=== PATIENT | male | born 1940 | race Caucasian/White ===

== ENCOUNTER 2016-06-18 15:35 | Outpatient (CLI) | payer MEDICARE, OTHER | END 2016-06-18 15:36 | disposition home or self-care (01) | DX: E11.9 Type 2 diabetes mellitus without complications (principal); R35.8 Other polyuria ==

== ENCOUNTER 2016-12-25 10:07 | Outpatient (CLI) | payer MEDICARE, OTHER ==
[2016-12-25 18:40] LABS: HEMOGLOBIN A1C 0.62 g/dL
[2016-12-25 19:44] LABS: CALCIUM 9.3 mg/dL (8.5-10.3); CREATININE 1.4 mg/dL (0.6-1.2); POTASSIUM 4.3 mmol/L (3.5-5.0)
== END 2016-12-25 10:08 | disposition home or self-care (01) ==
LOC: LAB.F 10:07
PROVIDERS: ATTEND Internal Medicine
DX: E11.9 Type 2 diabetes mellitus without complications (principal)
CPT/HCPCS: 36415; 80048; 83036

== ENCOUNTER 2017-01-13 15:27 | Outpatient (CLI) | payer MEDICARE, OTHER ==
[2017-01-13 18:05] LABS: BILIRUBIN,URINE NEGATIVE (NEGATIVE)
[2017-01-13 18:30] LABS: WBC,URINE 0-3 /HPF (0-3)
[2017-01-13 18:56] LABS: CREATININE 1.2 mg/dL (0.6-1.2); POTASSIUM 4.4 mmol/L (3.5-5.0)
== END 2017-01-13 15:28 | disposition home or self-care (01) ==
LOC: LAB.F 15:27
PROVIDERS: ATTEND Internal Medicine
DX: N17.9 Acute kidney failure, unspecified (principal); N40.1 Benign prostatic hyperplasia with lower urinary tract symptoms
CPT/HCPCS: 36415; 80048; 81001

== ENCOUNTER 2017-12-02 16:58 | Outpatient (CLI) | payer MEDICARE, OTHER | END 2017-12-02 16:59 | disposition home or self-care (01) | LOC: LAB.R 16:58 | PROVIDERS: ATTEND Nurse Practitioner Family | DX: L72.9 Follicular cyst of the skin and subcutaneous tissue, unspecified (principal) | CPT/HCPCS: 87070; 87205 ==

== ENCOUNTER 2018-07-16 07:37 | Outpatient (CLI) | payer MEDICARE, OTHER ==
[2018-07-16 12:40] LABS: ALBUMIN/GLOBULIN RATIO 1.3 (1.0-2.2); ALKALINE PHOSPHATASE 56 IU/L (42-121); ALT ALANINE AMINOTRANSFERASE 18 IU/L (10-60); AST ASPARTATE AMINOTRANSFERASE 19 IU/L (10-42); BUN - BLOOD UREA NITROGEN 24 mg/dL (6-20); CARBON DIOXIDE - CO2 28 mmol/L (21-32); CHLORIDE 101 mmol/L (101-111); CHOLESTEROL 179 mg/dL; CREATININE 1.3 mg/dL (0.6-1.2); GFR - MDRD 53 (>89); GLUCOSE 149 mg/dL (70-100); HDL CHOLESTEROL 45 mg/dL; LDL CHOLESTEROL,CALCULATED 104 mg/dL; LDL/HDL RATIO 2.3 (<3.6); SODIUM 137 mmol/L (135-145); TOTAL PROTEIN 7.1 g/dL (6.7-8.2); VLDL CHOLESTEROL 30 mg/dL
[2018-07-16 12:48] LABS: HB2 TOTAL 15.8 g/dL; HEMOGLOBIN A1C 0.69 g/dL; HEMOGLOBIN A1C % 6.1 % (4.6-6.2)
== END 2018-07-16 07:38 | disposition home or self-care (01) ==
LOC: LAB.F 07:37
PROVIDERS: ATTEND Internal Medicine
DX: E11.9 Type 2 diabetes mellitus without complications (principal); E78.5 Hyperlipidemia, unspecified
CPT/HCPCS: 36415; 80053; 80061; 83036; 83721

== ENCOUNTER 2018-12-18 08:00 | Outpatient (CLI) | payer MEDICARE, OTHER | END 2018-12-18 23:59 | disposition home or self-care (01) | LOC: LAB.R 08:00 | PROVIDERS: ATTEND Family Medicine | DX: L72.3 Sebaceous cyst (principal) | CPT/HCPCS: 87070; 87075; 87076; 87205 ==

== ENCOUNTER 2020-02-28 08:00 | Outpatient (CLI) | payer MEDICARE, OTHER | END 2020-02-28 23:59 | disposition home or self-care (01) | LOC: LAB.R 08:00 | PROVIDERS: ATTEND Internal Medicine | DX: Z12.11 Encounter for screening for malignant neoplasm of colon (principal) | CPT/HCPCS: 82274 ==

== ENCOUNTER 2020-04-04 13:32 | Outpatient (CLI) | payer MEDICARE, OTHER ==
[2020-04-04 19:45] LABS: BASOPHILS # (AUTO) 0.1 10^3/uL (0.0-0.1); BASOPHILS % (AUTO) 0.7 %; EOSINOPHILS # (AUTO) 0.3 10^3/uL (0.0-0.7); EOSINOPHILS % (AUTO) 3.3 %; HGB - HEMOGLOBIN 15.1 g/dL (14.0-18.0); LYMPHOCYTES # (AUTO) 2.7 10^3/uL (1.5-3.5); LYMPHOCYTES % (AUTO) 32.8 %; MEAN CORPUSCULAR HEMOGLOBIN 32.3 pg (27.0-31.0); MEAN CORPUSCULAR HGB CONC 32.6 g/dL (32.0-36.0); MEAN CORPUSCULAR VOLUME 99.1 fL (80.0-94.0); MEAN PLATELET VOLUME 12.6 fL (7.4-11.4); MONOCYTES # (AUTO) 0.8 10^3/uL (0.0-1.0); MONOCYTES % (AUTO) 9.6 %; NEUTROPHILS # (AUTO) 4.3 10^3/uL (1.5-6.6); NEUTROPHILS % (AUTO) 53.2 %; PLT - PLATELET COUNT 184 10^3/uL (130-450); RED BLOOD COUNT 4.67 10^6/uL (4.70-6.10); WHITE BLOOD COUNT 8.1 x10^3/uL (4.8-10.8)
[2020-04-04 20:07] LABS: ALBUMIN 4.1 g/dL (3.2-5.5); ALBUMIN/GLOBULIN RATIO 1.5 (1.0-2.2); BILIRUBIN,TOTAL 0.7 mg/dL (0.2-1.0); CALCIUM 9.8 mg/dL (8.5-10.3); CREATININE 1.5 mg/dL (0.6-1.2); TOTAL PROTEIN 6.9 g/dL (6.7-8.2)
== END 2020-04-04 13:33 | disposition home or self-care (01) ==
LOC: LAB.S 13:32
PROVIDERS: ATTEND Internal Medicine
DX: I10 Essential (primary) hypertension (principal)
CPT/HCPCS: 36415; 80053; 85025

== ENCOUNTER 2020-06-30 07:04 | Outpatient (CLI) | payer MEDICARE, OTHER ==
[2020-06-30 15:18] LABS: BASOPHILS # (AUTO) 0.1 10^3/uL (0.0-0.1); BASOPHILS % (AUTO) 0.9 %; EOSINOPHILS # (AUTO) 0.3 10^3/uL (0.0-0.7); EOSINOPHILS % (AUTO) 3.5 %; HCT - HEMATOCRIT 43.8 % (42.0-52.0); HGB - HEMOGLOBIN 14.4 g/dL (14.0-18.0); LYMPHOCYTES # (AUTO) 2.5 10^3/uL (1.5-3.5); LYMPHOCYTES % (AUTO) 32.9 %; MEAN CORPUSCULAR HEMOGLOBIN 31.6 pg (27.0-31.0); MEAN CORPUSCULAR HGB CONC 32.9 g/dL (32.0-36.0); MEAN CORPUSCULAR VOLUME 96.3 fL (80.0-94.0); MEAN PLATELET VOLUME 11.8 fL (7.4-11.4); MONOCYTES # (AUTO) 0.7 10^3/uL (0.0-1.0); NEUTROPHILS % (AUTO) 53.2 %; PLT - PLATELET COUNT 233 10^3/uL (130-450); RED BLOOD COUNT 4.55 10^6/uL (4.70-6.10); RED CELL DISTRIBUTION WIDTH 12.8 % (12.0-15.0); WHITE BLOOD COUNT 7.5 x10^3/uL (4.8-10.8)
[2020-06-30 15:51] LABS: ALBUMIN 4.1 g/dL (3.2-5.5); ALBUMIN/GLOBULIN RATIO 1.4 (1.0-2.2); BILIRUBIN,TOTAL 0.9 mg/dL (0.2-1.0); CALCIUM 9.5 mg/dL (8.5-10.3); CREATININE 1.6 mg/dL (0.6-1.2); POTASSIUM 4.3 mmol/L (3.5-5.0); TOTAL PROTEIN 7.1 g/dL (6.7-8.2)
[2020-06-30 19:55] LABS: ESTIMATED AVERAGE GLUCOSE 169 mg/dL (70-100); HEMOGLOBIN A1c% 7.5 % (4.27-6.07)
== END 2020-06-30 07:05 | disposition home or self-care (01) ==
LOC: LAB.S 07:04
PROVIDERS: ATTEND Internal Medicine
DX: I10 Essential (primary) hypertension (principal); E11.9 Type 2 diabetes mellitus without complications; N40.1 Benign prostatic hyperplasia with lower urinary tract symptoms; N13.8 Other obstructive and reflux uropathy
CPT/HCPCS: 36415; 80053; 83036; 84153; 85025

== ENCOUNTER 2020-08-18 08:00 | Outpatient (CLI) | payer MEDICARE, OTHER | END 2020-08-18 23:59 | disposition home or self-care (01) | LOC: LAB.S 08:00 | PROVIDERS: ATTEND Physician Assistant | DX: R05 Cough (principal); Z20.822 Contact with and (suspected) exposure to COVID-19 ==

== ENCOUNTER 2020-08-18 10:17 | Outpatient (CLI) | payer MEDICARE, OTHER ==
--- NOTE | 2020-08-18 10:40 | XRAY Report ---
PROCEDURE: Chest 2 View X-Ray INDICATIONS: COUGH TECHNIQUE: 2 view(s) of the chest. COMPARISON: None. FINDINGS: Surgical changes and devices: None. Lungs and pleura: No pleural effusions or pneumothorax. Lungs are clear. Mediastinum: Mediastinal contours are normal. Heart size is normal. Bones and chest wall: No suspicious bony abnormalities. Soft tissues appear unremarkable. IMPRESSION: No acute process. Reviewed by: Gemini Cohen MD on 08/18/2020 10:39 AM PDT Approved by: Gemini Cohen MD on 08/18/2020 10:39 AM PDT Station ID: [id number]
== END 2020-08-18 23:59 | disposition home or self-care (01) ==
LOC: DI.S 10:17
PROVIDERS: ATTEND Physician Assistant
DX: R05 Cough (principal); Z20.822 Contact with and (suspected) exposure to COVID-19
CPT/HCPCS: 71046; U0004

== ENCOUNTER 2020-09-27 07:16 | Outpatient (CLI) | payer MEDICARE, OTHER ==
[2020-09-27 16:26] LABS: ALBUMIN 4.1 g/dL (3.2-5.5); ALBUMIN/GLOBULIN RATIO 1.4 (1.0-2.2); BILIRUBIN,TOTAL 0.9 mg/dL (0.2-1.0); CALCIUM 9.2 mg/dL (8.5-10.3); CREATININE 1.3 mg/dL (0.6-1.2); POTASSIUM 4.7 mmol/L (3.5-5.0)
[2020-09-27 19:55] LABS: ESTIMATED AVERAGE GLUCOSE 160 mg/dL (70-100); HEMOGLOBIN A1c% 7.2 % (4.27-6.07)
== END 2020-09-27 07:17 | disposition home or self-care (01) ==
LOC: LAB.S 07:16
PROVIDERS: ATTEND Internal Medicine
DX: E11.22 Type 2 diabetes mellitus with diabetic chronic kidney disease (principal); N18.9 Chronic kidney disease, unspecified; R97.20 Elevated prostate specific antigen [PSA]
CPT/HCPCS: 36415; 80053; 83036; 84153

== ENCOUNTER 2020-12-05 08:00 | Outpatient (CLI) | payer MEDICARE, OTHER | END 2020-12-05 15:43 | disposition home or self-care (01) | LOC: LAB.S 08:00 | PROVIDERS: ATTEND Internal Medicine | DX: R06.01 Orthopnea (principal); I50.1 Left ventricular failure, unspecified; Z20.822 Contact with and (suspected) exposure to COVID-19 | CPT/HCPCS: 36415; 80053; 83880 ==

== ENCOUNTER 2020-12-05 15:22 | Outpatient (CLI) | payer MEDICARE, OTHER ==
--- NOTE | 2020-12-05 15:48 | XRAY Report ---
PROCEDURE: Chest 2 View X-Ray INDICATIONS: Orthopnea TECHNIQUE: 2 view(s) of the chest. COMPARISON: None. FINDINGS: Surgical changes and devices: None. Lungs and pleura: No pleural effusions or pneumothorax. Lungs are clear. Mediastinum: Mediastinal contours are normal. Heart size is at the upper limits of normal. Bones and chest wall: No suspicious bony abnormalities. Soft tissues appear unremarkable. IMPRESSION: Heart size at the upper limits of normal with increased interstitial markings in both dieter gs with cephalization of pulmonary vessels. Findings are consistent with mild degenerative pulmonary edema. Correlate with BNP. Reviewed by: Jef Og MD on 12/05/2020 3:47 PM PDT Approved by: Jef Og MD on 12/05/2020 3:47 PM PDT Station ID: [id number]
== END 2020-12-05 23:59 | disposition home or self-care (01) ==
LOC: DI.S 15:22
PROVIDERS: ATTEND Physician Assistant Medical
DX: R06.01 Orthopnea (principal)

== ENCOUNTER 2020-12-06 09:26 | Outpatient (CLI) | payer MEDICARE, OTHER ==
[2020-12-06 14:36] LABS: BASOPHILS # (AUTO) 0.1 10^3/uL (0.0-0.1); BASOPHILS % (AUTO) 0.8 %; EOSINOPHILS # (AUTO) 0.8 10^3/uL (0.0-0.7); EOSINOPHILS % (AUTO) 9.2 %; HCT - HEMATOCRIT 39.5 % (42.0-52.0); HGB - HEMOGLOBIN 13.4 g/dL (14.0-18.0); LYMPHOCYTES # (AUTO) 1.9 10^3/uL (1.5-3.5); LYMPHOCYTES % (AUTO) 22.9 %; MEAN CORPUSCULAR HEMOGLOBIN 32.4 pg (27.0-31.0); MEAN CORPUSCULAR HGB CONC 33.9 g/dL (32.0-36.0); MEAN CORPUSCULAR VOLUME 95.6 fL (80.0-94.0); MEAN PLATELET VOLUME 11.9 fL (7.4-11.4); MONOCYTES % (AUTO) 11.4 %; NEUTROPHILS # (AUTO) 4.6 10^3/uL (1.5-6.6); NEUTROPHILS % (AUTO) 55.3 %; PLT - PLATELET COUNT 188 10^3/uL (130-450); RED BLOOD COUNT 4.13 10^6/uL (4.70-6.10); WHITE BLOOD COUNT 8.4 x10^3/uL (4.8-10.8)
[2020-12-06 14:52] LABS: ALBUMIN 3.8 g/dL (3.2-5.5); ALBUMIN/GLOBULIN RATIO 1.3 (1.0-2.2); BILIRUBIN,TOTAL 0.9 mg/dL (0.2-1.0); CALCIUM 8.9 mg/dL (8.5-10.3); CREATININE 1.5 mg/dL (0.6-1.2); POTASSIUM 4.5 mmol/L (3.5-5.0); TOTAL PROTEIN 6.8 g/dL (6.7-8.2)
== END 2020-12-06 09:27 | disposition home or self-care (01) ==
LOC: LAB.S 09:26
PROVIDERS: ATTEND Internal Medicine
DX: E11.9 Type 2 diabetes mellitus without complications (principal); R06.01 Orthopnea
CPT/HCPCS: 36415; 80053; 83880; 85025

== ENCOUNTER 2020-12-11 09:16 | Outpatient (CLI) | payer MEDICARE, OTHER ==
[2020-12-11 15:44] LABS: ALBUMIN 4.4 g/dL (3.2-5.5); ALBUMIN/GLOBULIN RATIO 1.5 (1.0-2.2); BILIRUBIN,TOTAL 1.4 mg/dL (0.2-1.0); CALCIUM 9.5 mg/dL (8.5-10.3); CREATININE 1.8 mg/dL (0.6-1.2); POTASSIUM 4.8 mmol/L (3.5-5.0); TOTAL PROTEIN 7.4 g/dL (6.7-8.2)
== END 2020-12-11 09:17 | disposition home or self-care (01) ==
LOC: LAB.S 09:16
PROVIDERS: ATTEND Internal Medicine
DX: N18.9 Chronic kidney disease, unspecified (principal); I50.1 Left ventricular failure, unspecified
CPT/HCPCS: 36415; 80053; 83880

== ENCOUNTER → 2020-12-27 | Outpatient (CLI) | payer MEDICARE, OTHER ==
[2020-12-27 20:02] LABS: ALBUMIN/GLOBULIN RATIO 1.3 (1.0-2.2); BILIRUBIN,TOTAL 0.8 mg/dL (0.2-1.0); CALCIUM 9.4 mg/dL (8.5-10.3); CREATININE 1.5 mg/dL (0.6-1.2); POTASSIUM 4.5 mmol/L (3.5-5.0)
== END ==
LOC: LAB.S 08:00
PROVIDERS: ATTEND Internal Medicine
DX: I50.1 Left ventricular failure, unspecified (principal)
CPT/HCPCS: 36415; 80053; 83880

== ENCOUNTER 2021-01-25 08:52 | Outpatient (CLI) | payer MEDICARE, OTHER | END 2021-01-25 08:53 | disposition home or self-care (01) | LOC: DI 08:52 | PROVIDERS: ATTEND Internal Medicine | DX: I50.1 Left ventricular failure, unspecified (principal); I51.7 Cardiomegaly | CPT/HCPCS: 93306 ==

== ENCOUNTER 2021-02-01 13:25 | Outpatient (CLI) | payer MEDICARE, OTHER ==
[2021-02-01] MEDS ORDERED: ALBUTEROL 1 PUFF INH STA (14:56)
== END 2021-02-01 13:26 | disposition home or self-care (01) ==
LOC: RT 13:25
PROVIDERS: ATTEND Internal Medicine
DX: J45.909 Unspecified asthma, uncomplicated (principal); I50.1 Left ventricular failure, unspecified
CPT/HCPCS: 94060; 94729

== ENCOUNTER 2021-04-02 12:40 | Outpatient (CLI) | payer MEDICARE, OTHER ==
[2021-04-02 16:24] LABS: ALBUMIN 3.9 g/dL (3.2-5.5); ALBUMIN/GLOBULIN RATIO 1.3 (1.0-2.2); BILIRUBIN,TOTAL 0.7 mg/dL (0.2-1.0); CALCIUM 9.6 mg/dL (8.5-10.3); CREATININE 1.3 mg/dL (0.6-1.2); POTASSIUM 4.1 mmol/L (3.5-5.0); TOTAL PROTEIN 6.8 g/dL (6.7-8.2)
[2021-04-02 20:20] LABS: ESTIMATED AVERAGE GLUCOSE 146 mg/dL (70-100); HEMOGLOBIN A1c% 6.7 % (4.27-6.07)
== END 2021-04-02 12:41 | disposition home or self-care (01) ==
LOC: LAB.S 12:40
PROVIDERS: ATTEND Internal Medicine
DX: E11.9 Type 2 diabetes mellitus without complications (principal)
CPT/HCPCS: 36415; 80053; 83036

== ENCOUNTER 2021-05-25 08:00 | Outpatient (CLI) | payer MEDICARE, OTHER ==
--- NOTE | 2021-05-26 08:50 | XRAY Report ---
PROCEDURE: Chest 2 View X-Ray INDICATIONS: COPD, COUGH TECHNIQUE: 2 view(s) of the chest. COMPARISON: None. FINDINGS: Surgical changes and devices: None. Lungs and pleura: No pleural effusions or pneumothorax. Lungs are clear. Mediastinum: Mediastinal contours are normal. Heart size is normal. Bones and chest wall: No suspicious bony abnormalities. Soft tissues appear unremarkable. IMPRESSION: Unremarkable two-view chest x-ray Reviewed by: Slick Roger MD on 05/26/2021 7:49 AM [facility] Approved by: Slick Roger MD on 05/26/2021 7:49 AM [facility] Station ID: [id number]
== END 2021-05-25 23:59 | disposition home or self-care (01) ==
LOC: DI.S 08:00
PROVIDERS: ATTEND Physician Assistant Medical
DX: J44.9 Chronic obstructive pulmonary disease, unspecified (principal); J45.909 Unspecified asthma, uncomplicated; R06.02 Shortness of breath; R05.9 Cough, unspecified

== ENCOUNTER 2022-01-30 18:10 | Emergency (ER) | payer MEDICARE, OTHER ==
--- OUTSIDE RECORDS SUMMARY | 2022-01-30 18:23 | EXTERNAL MEDICAL SUMMARY RPT | Continuity of Care Document ---
:1940 Author Organization [facility] Address [address] [place] [address] Phone Allergies No information. Encounters No information. Functional Status No information. Immunizations No information. Medications date description facility +0000 atorvastatin [facility] +0000 atorvastatin [facility] +0000 cholecalciferol (vitamin d3) [facility] +0000 cholecalciferol (vitamin d3) [facility] Problems No information. Procedures date description facility +0000 Visit Code Hold [facility] [place] Results/Labs No information. Social History date description facility +0000 Former smoker [facility] [place] Vital Signs date measurement value units +0000 BMI BMI 36.58 kg/m2 [id number]+0000 BP_diastolic BP_diastolic 67 mm[H g] [id number]+0000 BP_systolic BP_systolic 154 mm[Hg] 46798245370957+0000 heart_rate heart_rate 77 /min [id number]+0000 height_metric height_metric 177.8 cm [id number]+0000 height_standard height_standard 70 in +0000 respiration_rate respiration_rate 18 /min [id number]+0000 temperature_metric temperature_metric 36.06 C [id number]+0000 temperature_standard temperature_standard 9 6.9 F [id number]+0000 weight_metric weight_metric 115.21 kg [id number]+0000 weight_standard weight_standard 254 lb
== END 2022-01-30 18:22 | disposition left against medical advice (07) ==
LOC: ED 18:10
DX: Z53.21 Procedure and treatment not carried out due to patient leaving prior to being seen by health care provider (principal)

== ENCOUNTER 2022-01-30 18:23 | Outpatient (CLI) | payer MEDICARE, OTHER ==
--- NOTE | 2022-01-30 20:24 | Ultrasound Report ---
PROCEDURE: Duplex Ext Veins Right INDICATIONS: EDEMA TECHNIQUE: Real-time imaging, as well as color and pulse Doppler interrogation, were performed of the lower extr emity deep veins from the inguinal ligament to the popliteal fossa. COMPARISON: None. FINDINGS: The deep veins are normally compressible, and free of intraluminal thrombus. Color and pu lse Doppler demonstrate normal phasic intraluminal flow. There is normal augmentation response to di stal compression maneuver. Elongated fluid collection in popliteal fossae seen measures 4.7 x 0.4 x 2.1 cm in size. IMPRESSION: No evidence of DVT in visualized right lower extremity veins. Right lower leg edema. Sma ll popliteal cyst as above. Reviewed by: Seng Fabian MD on 01/30/2022 8:23 PM PDT Approved by: Seng Fabian MD on 01/30/2022 8:23 PM PDT Station ID: [id number]
== END 2022-01-30 18:24 | disposition home or self-care (01) ==
LOC: DI 18:23
PROVIDERS: ATTEND Internal Medicine
DX: R60.0 Localized edema (principal); M71.21 Synovial cyst of popliteal space [Baker], right knee

== ENCOUNTER 2022-03-18 07:10 | Outpatient (CLI) | payer MEDICARE, OTHER ==
[2022-03-18 14:57] LABS: BASOPHILS # (AUTO) 0.1 10^3/uL (0.0-0.1); BASOPHILS % (AUTO) 1.3 %; EOSINOPHILS # (AUTO) 0.7 10^3/uL (0.0-0.7); EOSINOPHILS % (AUTO) 8.4 %; HCT - HEMATOCRIT 36.3 % (42.0-52.0); HGB - HEMOGLOBIN 11.5 g/dL (14.0-18.0); LYMPHOCYTES # (AUTO) 3.4 10^3/uL (1.5-3.5); LYMPHOCYTES % (AUTO) 39.6 %; MEAN CORPUSCULAR HEMOGLOBIN 31.5 pg (27.0-31.0); MEAN CORPUSCULAR HGB CONC 31.7 g/dL (32.0-36.0); MEAN CORPUSCULAR VOLUME 99.5 fL (80.0-94.0); MEAN PLATELET VOLUME 11.7 fL (7.4-11.4); MONOCYTES # (AUTO) 0.9 10^3/uL (0.0-1.0); MONOCYTES % (AUTO) 10.6 %; NEUTROPHILS # (AUTO) 3.5 10^3/uL (1.5-6.6); PLT - PLATELET COUNT 232 10^3/uL (130-450); RED BLOOD COUNT 3.65 10^6/uL (4.70-6.10); RED CELL DISTRIBUTION WIDTH 12.9 % (12.0-15.0); WHITE BLOOD COUNT 8.6 x10^3/uL (4.8-10.8)
[2022-03-18 15:45] LABS: ALBUMIN 3.8 g/dL (3.2-5.5); ALBUMIN/GLOBULIN RATIO 1.2 (1.0-2.2); ALKALINE PHOSPHATASE 71 IU/L (42-121); ALT ALANINE AMINOTRANSFERASE 17 IU/L (10-60); AST ASPARTATE AMINOTRANSFERASE 21 IU/L (10-42); BILIRUBIN,TOTAL 0.9 mg/dL (0.2-1.0); BUN - BLOOD UREA NITROGEN 25 mg/dL (6-20); CALCIUM 9.3 mg/dL (8.5-10.3); CARBON DIOXIDE - CO2 29 mmol/L (21-32); CHLORIDE 100 mmol/L (101-111); CHOLESTEROL 148 mg/dL; CREATININE 1.4 mg/dL (0.6-1.2); GFR - MDRD 48 (>89); GLUCOSE 147 mg/dL (70-100); HDL CHOLESTEROL 37 mg/dL; LDL CHOLESTEROL,CALCULATED 87 mg/dL; LDL/HDL RATIO 2.4 (<3.6); POTASSIUM 3.9 mmol/L (3.5-5.0); SODIUM 139 mmol/L (135-145); TOTAL PROTEIN 6.9 g/dL (6.7-8.2); TRIGLYCERIDES 119 mg/dL; VLDL CHOLESTEROL 24 mg/dL
[2022-03-18 18:38] LABS: ESTIMATED AVERAGE GLUCOSE 146 mg/dL (70-100); HEMOGLOBIN A1c% 6.7 % (4.27-6.07)
== END 2022-03-18 07:11 | disposition home or self-care (01) ==
LOC: LAB.S 07:10
PROVIDERS: ATTEND Registered Nurse
DX: E78.5 Hyperlipidemia, unspecified (principal); E11.9 Type 2 diabetes mellitus without complications; Z79.899 Other long term (current) drug therapy
CPT/HCPCS: 36415; 80053; 80061; 82043; 82570; 83036; 83721; 85025

== ENCOUNTER 2022-03-18 11:30 | Outpatient (CLI) | payer MEDICARE, OTHER ==
[2022-03-19 21:17] LABS: CREATININE,URINE 74.1 mg/dL; MICROALBUM/CREATININE RATIO,UR 10.8 ug/mg (<30.0); MICROALBUMIN,URINE 0.8 mg/dL (0-300.0)
== END 2022-03-18 23:59 | disposition home or self-care (01) ==
LOC: LAB 11:30
PROVIDERS: ATTEND Registered Nurse
DX: E11.9 Type 2 diabetes mellitus without complications (principal)
CPT/HCPCS: 36415; 80053; 80061; 82043; 82570; 83036; 83721; 85025

== ENCOUNTER 2022-11-05 13:36 | Outpatient (CLI) | payer MEDICARE, OTHER ==
[2022-11-05 20:03] LABS: BASOPHILS # (AUTO) 0.1 10^3/uL (0.0-0.1); BASOPHILS % (AUTO) 0.9 %; EOSINOPHILS # (AUTO) 0.2 10^3/uL (0.0-0.7); EOSINOPHILS % (AUTO) 2.2 %; HCT - HEMATOCRIT 42.4 % (42.0-52.0); LYMPHOCYTES # (AUTO) 3.9 10^3/uL (1.5-3.5); LYMPHOCYTES % (AUTO) 42.9 %; MEAN CORPUSCULAR HEMOGLOBIN 31.7 pg (27.0-31.0); MEAN CORPUSCULAR VOLUME 95.9 fL (80.0-94.0); MEAN PLATELET VOLUME 12.6 fL (7.4-11.4); MONOCYTES # (AUTO) 1.3 10^3/uL (0.0-1.0); MONOCYTES % (AUTO) 14.1 %; NEUTROPHILS # (AUTO) 3.6 10^3/uL (1.5-6.6); NEUTROPHILS % (AUTO) 39.7 %; PLT - PLATELET COUNT 218 10^3/uL (130-450); RED BLOOD COUNT 4.42 10^6/uL (4.70-6.10); RED CELL DISTRIBUTION WIDTH 12.2 % (12.0-15.0); WHITE BLOOD COUNT 9.1 x10^3/uL (4.8-10.8)
[2022-11-05 20:19] LABS: CALCIUM 9.5 mg/dL (8.5-10.3); CREATININE 1.7 mg/dL (0.6-1.3); POTASSIUM 3.6 mmol/L (3.5-4.5)
== END 2022-11-05 13:37 | disposition home or self-care (01) ==
LOC: LAB.S 13:36
PROVIDERS: ATTEND Emergency Medicine
DX: N18.9 Chronic kidney disease, unspecified (principal); R60.0 Localized edema
CPT/HCPCS: 36415; 80048; 83735; 83880; 85025

== ENCOUNTER 2022-11-07 08:00 | Outpatient (CLI) | payer MEDICARE, OTHER | END 2022-11-07 23:59 | disposition home or self-care (01) | LOC: LAB.S 08:00 | PROVIDERS: ATTEND Emergency Medicine | DX: R41.0 Disorientation, unspecified (principal) | CPT/HCPCS: 82962 ==

== ENCOUNTER 2022-11-07 08:23 | Outpatient (CLI) | payer MEDICARE, OTHER | END 2022-11-07 23:59 | disposition critical access hospital (66) | LOC: EMS 08:23 | DX: R41.0 Disorientation, unspecified (principal); R47.81 Slurred speech; R41.89 Other symptoms and signs involving cognitive functions and awareness | CPT/HCPCS: A0425; A0429 ==

== ENCOUNTER 2022-11-07 08:59 | Observation (INO) | payer MEDICARE, OTHER ==
[2022-11-07] MEDS ORDERED: MAGNESIUM SULFATE 2 GRAM 2 GM/50 ML BAG IV ONE ×2 (09:04→11:32)
--- NOTE | 2022-11-07 09:05 | ED Physician Documentation ---
PD HPI FOCAL NEURO - Stated complaint Stated Complaint: CODE STROKE - History obtained from History obtained from: Patient, EMS - History of Present Illness Timing - onset: How many hours ago (in the past 1-2 hours), Today Timing - duration: Hours (1-2) Timing - details: Abrupt onset, Still present Severity of deficit: Mild Weakness: No: Face, Arm, Leg Numbness: No: Face, Arm, Leg Associated symptoms: No: Headache, Head injury, Chest pain Contributing factors: negative: Atrial fibrillation Similar symptoms before: Has not had sx before Recently seen: Clinic (Seen and clinic couple of days ago with basic labs drawn. Result yesterday showed a magnesium 1.0.) Review of Systems Constitutional: denies: Fever, Chills Nose: denies: Rhinorrhea / runny nose, Congestion Throat: denies: Sore throat Cardiac: denies: Chest pain / pressure Respiratory: denies: Cough GI: denies: Abdominal Pain, Nausea, Vomiting, Diarrhea Neurologic: denies: Headache, Head injury PD PAST MEDICAL HISTORY - Present Medications Home Medications: Ambulatory Orders Medication Instructions Recorded Confirmed Atorvastatin [Lipitor] 10 mg PO QPM 11/07/22 11/07/22 Cholecalciferol [Vitamin D3] 25 mcg PO DAILY 11/07/22 11/07/22 Furosemide [Lasix] 20 mg PO DAILY 11/07/22 11/07/22 Magnesium Oxide [Magnesium] 400 mg PO DAILY 11/07/22 11/07/22 Montelukast [Singulair] 10 mg PO QPM 11/07/22 11/07/22 Multivitamin [Theragran] 1 tab PO DAILY 11/07/22 11/07/22 Tamsulosin [Flomax] 0.4 mg PO QPM 11/07/22 11/07/22 Tiotropium [place] [Spiriva 1 puffs INH DAILY PRN 11/07/22 11/07/22 Respimat] amLODIPine [Norvasc] 5 mg PO DAILY 11/07/22 11/07/22 metFORMIN [Glucophage] 850 mg PO BID 11/07/22 11/07/22 oxyBUTYnin chloride [Oxybutynin 5 mg PO BID 11/07/22 11/07/22 Chloride] - Allergies Allergies/Adverse Reactions: Allergies Allergy/AdvReac Type Severity Reaction Status Date / Time pork derived (porcine) Allergy Unknown Verified 11/07/22 16:21 shellfish derived Allergy Unknown Verified 11/07/22 16:20 PD ED PE NORMAL - Vitals Vital signs reviewed: Yes - General General: Alert and oriented X 3, No acute distress, Well developed/nourished, Other (speech is somewhat sluggish for complete sentences with some word search and occasional incomplete sentence thought. ) - HEENT HEENT: Atraumatic, PERRL, EOMI - Neck Neck: Supple, no meningeal sign, No adenopathy, No bruit - Cardiac Cardiac: RRR, No murmur - Respiratory Respiratory: Clear bilaterally - Abdomen Abdomen: Soft, Non tender - Derm Derm: Normal color, Warm and dry - Extremities Extremities: Normal ROM s pain, No edema - Neuro Neuro: Alert and oriented X 3, on air personality 2-12 intact, No motor deficit, No sensory deficit. No: Normal speech NIHSS - Level of Consciousness Level of consciousness: (0) Alert, Keenly responsive LOC Questions: (0) Answers both Q's correct LOC Commands: (0) Performs both correctly - Gaze Best Gaze: (0) Normal - Visual Visual: (0) No loss - Facial Palsy Facial Palsy: (0) Normal, symmetrical movement - Motor Arms (both separate) Motor Arm (right): (0) No drift Motor Arm (left): (0) No drift - Motor Legs (both separate) Motor Leg (right): (0) No drift Motor Leg (left): (0) No drift - Limb Ataxia Limb Ataxia: (0) Absent - Sensory Sensory: (0) Normal - Best Language Best Language: (1) [id number] - Dysarthria Dysarthria: (0) Normal - Extinction and Inattention (formally neg Extinction and inattention: (0) No abnormality - Total Score/Results Total Score/Result: 1 Results - Vitals Vitals: Vital Signs - 24 hr 11/07/22 11/07/22 11/07/22 08:56 10:25 11:02 Temperature 36.3 C L Heart Rate 85 80 89 Respiratory 20 21 22 Rate Blood Pressure 142/69 H 138/75 H 140/65 H O2 Saturation 99 93 99 11/07/22 11:58 Temperature Heart Rate 81 Respiratory 14 Rate Blood Pressure 143/74 H O2 Saturation 100 Oxygen O2 Source Room air - Labs Labs: Laboratory Tests 11/07/22 11/07/22 11/07/22 09:26 09:26 09:26 WBC 6.9 RBC 4.04 L Hgb 13.1 L Hct 38.0 L MCV 94.1 H MCH 32.4 H MCHC 34.5 RDW 11.9 L Plt Count 182 MPV 11.5 H Neut # (Auto) 2.9 Lymph # (Auto) 2.6 Ogle # (Auto) 1.1 H Eos # (Auto) 0.2 Baso # (Auto) 0.1 Absolute Nucleated RBC 0.00 Nucleated RBC % 0.0 ESR 21 H Sodium 136 Potassium 3.8 Chloride 96 L Carbon Dioxide 31 Anion Gap 9.0 BUN 20 Creatinine 1.9 H Estimated GFR (MDRD) 34 L Glucose 187 H Calcium 9.1 Magnesium 0.9 L* Total Bilirubin 1.0 AST 25 ALT 21 Alkaline Phosphatase 61 Total Protein 6.1 L Albumin 3.8 Globulin 2.3 Albumin/Globulin Ratio 1.7 Lipase 20 TSH 11/07/22 09:26 WBC RBC Hgb Hct MCV MCH MCHC RDW Plt Count MPV Neut # (Auto) Lymph # (Auto) Ogle # (Auto) Eos # (Auto) Baso # (Auto) Absolute Nucleated RBC Nucleated RBC % ESR Sodium Potassium Chloride Carbon Dioxide Anion Gap BUN Creatinine Estimated GFR (MDRD) Glucose Calcium Magnesium Total Bilirubin AST ALT Alkaline Phosphatase Total Protein Albumin Globulin Albumin/Globulin Ratio Lipase TSH 3.39 - Rads (name of study) head CT Relevant Findings:: Prelim report reviewed, Discussed with rads (no acute process seen), See rad report head/neck angio Relevant Findings:: Discussed with rads (no flow limitations. 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 ) PD Medical Decision Making - ED course Complexity details: reviewed results, re-evaluated patient (the patient is speaking well and seems to have good content and thought process. He has low Mag, which could give neurologic symptoms. Giving IV Mag. However, concern for possible TIA. Talked with hospitalist re: OBS for Mag replacement and TIA eval.), d/w natural remedy consultant (discussed with stroke neurology who examined patietn via video. No symptoms now or minimal level of some confusion. Not indicated for lytics and CT showing patent flow in head/neck vessels. ) Departure - Departure Disposition: ED Place in Observation Clinical Impression: Expressive aphasia, Hypomagnesemia Condition: Stable Record reviewed to determine appropriate education?: Yes Discharge Date/Time: 11/07/22 13:14
[2022-11-07] MEDS ORDERED: iohexoL-300 100 ML VIAL ONE (09:29)
[2022-11-07 09:32] LABS: BASOPHILS # (AUTO) 0.1 10^3/uL (0.0-0.1); BASOPHILS % (AUTO) 1.2 %; EOSINOPHILS # (AUTO) 0.2 10^3/uL (0.0-0.7); EOSINOPHILS % (AUTO) 2.8 %; HGB - HEMOGLOBIN 13.1 g/dL (14.0-18.0); LYMPHOCYTES # (AUTO) 2.6 10^3/uL (1.5-3.5); MEAN CORPUSCULAR HEMOGLOBIN 32.4 pg (27.0-31.0); MEAN CORPUSCULAR HGB CONC 34.5 g/dL (32.0-36.0); MEAN CORPUSCULAR VOLUME 94.1 fL (80.0-94.0); MEAN PLATELET VOLUME 11.5 fL (7.4-11.4); MONOCYTES # (AUTO) 1.1 10^3/uL (0.0-1.0); MONOCYTES % (AUTO) 15.5 %; NEUTROPHILS # (AUTO) 2.9 10^3/uL (1.5-6.6); NEUTROPHILS % (AUTO) 42.4 %; PLT - PLATELET COUNT 182 10^3/uL (130-450); RED BLOOD COUNT 4.04 10^6/uL (4.70-6.10); RED CELL DISTRIBUTION WIDTH 11.9 % (12.0-15.0); WHITE BLOOD COUNT 6.9 x10^3/uL (4.8-10.8)
--- NOTE | 2022-11-07 09:33 | CT Report ---
PROCEDURE: Head W/O Stroke Protocol INDICATIONS: trouble speaking this AM TECHNIQUE: Noncontrast 4.5 mm thick angled axial sections acquired from the foramen magnum to the vertex, with c oronal reformats. For radiation dose reduction, the following was used: automated exposure control, adjustment of mA and/or kV according to patient size. COMPARISON: None. FINDINGS: Image quality: Excellent. CSF spaces: Basal cisterns are patent. No extra-axial fluid collections. Ventricles are normal in size and shape. Brain: No midline shift. No intracranial masses or hemorrhage. Age-related volume loss and extensi ve white matter chronic small vessel ischemic changes are seen. Ibanez-white matter interface is normal . Skull and face: Calvarium and visualized facial bones are intact, without suspicious lesions. Sinuses: Visualized sinuses and mastoids are clear. IMPRESSION: No acute intracranial pathology. No contraindication to IV TPA therapy. Findings were discussed with ordering provider on 11/07/2022 at 9:27 AM. This study fulfills neurological imaging criteria for inclusion or exclusion of acute stroke therapie s based on available published neurological imaging guidelines. Reviewed by: Seng Beck MD on 11/07/2022 9:31 AM PDT Approved by: Seng Beck MD on 11/07/2022 9:31 AM PDT Station ID: [id number]
[2022-11-07 09:49] LABS: ALBUMIN 3.8 g/dL (3.2-5.5); ALBUMIN/GLOBULIN RATIO 1.7 (1.0-2.2); CALCIUM 9.1 mg/dL (8.5-10.3); CREATININE 1.9 mg/dL (0.6-1.3); POTASSIUM 3.8 mmol/L (3.5-4.5); TOTAL PROTEIN 6.1 g/dL (6.4-8.9)
[2022-11-07 10:04] LABS: MAGNESIUM 0.9 mg/dL (1.7-2.3)
[2022-11-07] MEDS ORDERED: LACTATED RINGERS 1,000 ML IV STA (10:08)
[2022-11-07] MEDS ORDERED: iohexoL-300 100 ML VIAL IVP ONE (12:07)
[2022-11-07] MEDS ORDERED: SODIUM CHLORIDE FLUSH 0.9% 10 ML SYRINGE IVP PRN (12:10)
[2022-11-07] MEDS ORDERED: HYDROcod/ACETAM 5/325 MG TABLET PO PRN (12:10)
[2022-11-07] MEDS ORDERED: ONDANSETRON ODT 4 MG TABLET TL PRN (12:10)
[2022-11-07] MEDS ORDERED: ACETAMINOPHEN 325 MG TABLET PO PRN (12:10)
--- NOTE | 2022-11-07 12:27 | HISTORY & PHYSICAL EXAMINATION ---
Chief Complaint - Chief Complaint Chief Complaint: Confusion, difficulty speaking Stroke/TIA/Neuro Template - Admitted From Admitted from: ED - History Obtained From Records Reviewed: RN notes reviewed History obtained from: Patient, Family () - History of Present Illness Problem Location Description: Confusion, speeck Severity at the worst: reports: Moderate Symptom Quality: reports: Expressive aphasia. denies: Numbness, Tingling, Headache, Facial droop, Paralysis, Slurred speech, Receptive aphasia, Ataxia, Apraxia, Syncope Context- Symptoms started w/: reports: Awake Timing: reports: Abrupt onset Date of onset: 11/07/22 Time of onset: 06:00 Duration: reports: Hours: Improved with: reports: Rest Worsened by: reports: Nothing HPI Comment/Other: Patient is an 81-year-old man with PMH of type 2 diabetes, hypertension, obesity, who presented to the ED today after he noticed confusion and difficulty speaking since this morning. Patient states he was in his usual state of health up until when he woke up this morning. He woke up and went down to his computer to check his emails and do some other work, when he noticed he started to feel confused and had a difficult time managing his computer. This was then noticed by his . He is on went to have a coffee with some friends who noticed he does not seem right so they advised to go to the emergency room for further evaluation. The patient and his are both quite poor historians and unable to provide much detail, but it does not appear that he has had any motor symptoms, headache, blurry vision, numbness, asymmetric smile, facial asymmetry or other focal neurological deficits. In an attempt to specify whether the patient had any dysarthria, I am unable to get a certain answer from either the patient or his . With respect to blurry vision, he reports his vision seems to be worse over the last few weeks, but nothing acutely that developed since this morning. Patient states he went to a walk-in clinic earlier this week, and had some blood work done. He was told that his magnesium level was low. He initially did not recall why he was going to the walk-in clinic in the first place, but eventually remembered and says it is because he had not been feeling well. When asked about specific symptoms, it is very difficult to extract any meaningful history from either the patient or his as they do not seem to have much recall and/or comprehension. In the ED, the patient was worked up as a code neuro for the possibility of CVA. His work-up was largely reassuring with normal vital signs, and low magnesium at 0.9 but otherwise fairly unremarkable labs with the exception of a creatinine of 1.9 which appears somewhat higher than his baseline. He had an unremarkable head CT and, per ED physician, unremarkable head CT angiogram of the head and the neck (report not available at the time of admission). Neurology telemedicine consultation was obtained and it was not felt that this was likely to be a CVA and may be a result of low magnesium levels as his magnesium was 0.9 in the ED. However, observation admission was suggested. Magnesium replacement was initiated in the ED. PMH/PSH - Past Medical History Cardiovascular: positive: Hypertension Endocrine/Autoimmune: positive: Type 2 diabetes - Past Surgical History Derm: positive: Skin cancer surgery Social & Family Hx - Living Situation Living Situation: With spouse/s.o. - Social History Does the pt smoke?: No Smoking Status: Former smoker Does the pt drink ETOH?: Yes ETOH Use: Wine (5-7 naren per week, no alchol in the past few weeks on admission) - POLST Patient has POLST: No POLST Status: Full Code - Family History Family History: Other family: Diabetes, Type 2 Meds/Allgy - Home Medications Home Medications: Ambulatory Orders Medication Instructions Recorded Confirmed Tiotropium [place] [Spiriva 11/07/22 Respimat] amLODIPine [Norvasc] 5 mg PO DAILY 11/07/22 11/07/22 metFORMIN [Glucophage] 11/07/22 - Allergies Allergies/Adverse Reactions: Allergies Allergy/AdvReac Type Severity Reaction Status Date / Time No Known Drug Allergies Allergy Verified 11/07/22 09:25 Review of Systems - Constitutional Constitutional: denies: Fatigue, Fever, Chills, Malaise - Eyes Eyes: denies: Blurred vision, Spots in vision, Field loss, Vision loss, Dipolpia - Cardiovascular Cariovascular: denies: Irregular heart rate, Palpitations, Chest pain - Respiratory Respiratory: denies: Cough, SOB at rest, SOB with exertion - Gastrointestinal Gastrointestinal: denies: Abdominal pain, Diarrhea, Change in bowel habits - Musculoskeletal Musculoskeletal: denies: Muscle weakness - Neurological Neurological: reports: Memory problems, Slurred speech. denies: General weakness, Focal weakness, Headache, Numbness, Incoordination Prior Level of Functionality: Fully independent and ambulatory Exam - Vital Signs Reviewed Vital Signs: Yes Vital Signs: Vital Signs x48h Temp Pulse Resp BP Pulse Ox 11/07/22 11:58 81 14 143/74 H 100 11/07/22 11:02 89 22 140/65 H 99 11/07/22 10:25 80 21 138/75 H 93 11/07/22 08:56 36.3 C L 85 20 142/69 H 99 - Physical Exam General Appearance: positive: No acute distress, Other (Obese) Eyes Bilateral: positive: Normal inspection, EOMI ENT: positive: ENT inspection nml Neck: positive: Nml inspection Respiratory: positive: Chest non-tender, No respiratory distress Cardiovascular: positive: Regular rate & rhythm, No murmur, No gallop Abdomen: positive: Non-tender, No organomegaly, Nml bowel sounds Skin: positive: Color nml Extremities: positive: Full ROM, Nml appearance, Pedal edema Neurologic/Psychiatric: positive: Oriented x3, CN's nml (2-12), Motor nml, Sensation nml, Mood/affect nml, Other (Patient is alert and oriented however seems to have some memory recall problems and is a poor historian) Results - Lab Results Lab results reviewed: Yes Fish Bones: 11/07/22 09:26 11/07/22 09:26 Other Lab Results: Lab Results x24hrs 11/07/22 11/07/22 11/07/22 Range/Units 09:26 09:26 09:26 WBC 6.9 (4.8-10.8) x10^3/uL RBC 4.04 L (4.70-6.10) 10^6/uL Hgb 13.1 L (14.0-18.0) g/dL Hct 38.0 L (42.0-52.0) % MCV 94.1 H (80.0-94.0) fL MCH 32.4 H (27.0-31.0) pg MCHC 34.5 (32.0-36.0) g/dL RDW 11.9 L (12.0-15.0) % Plt Count 182 (130-450) 10^3/uL MPV 11.5 H (7.4-11.4) fL Neut # (Auto) 2.9 (1.5-6.6) 10^3/uL Lymph # (Auto) 2.6 (1.5-3.5) 10^3/uL [place] # (Auto) 1.1 H (0.0-1.0) 10^3/uL Eos # (Auto) 0.2 (0.0-0.7) 10^3/uL Baso # (Auto) 0.1 (0.0-0.1) 10^3/uL Absolute Nucleated RBC 0.00 x10^3/uL Nucleated RBC % 0.0 /100WBC ESR (0-20) mm/Hr Sodium 136 (135-145) mmol/L Potassium 3.8 (3.5-4.5) mmol/L Chloride 96 L (101-111) mmol/L Carbon Dioxide 31 (21-32) mmol/L Anion Gap 9.0 (6-13) BUN 20 (6-20) mg/dL Creatinine 1.9 H (0.6-1.3) mg/dL Estimated GFR (MDRD) 34 L (>89) Glucose 187 H (74-104) mg/dL Calcium 9.1 (8.5-10.3) mg/dL Magnesium 0.9 L* (1.7-2.3) mg/dL Total Bilirubin 1.0 (0.2-1.0) mg/dL AST 25 (10-42) IU/L ALT 21 (10-60) IU/L Alkaline Phosphatase 61 (42-121) IU/L Total Protein 6.1 L (6.4-8.9) g/dL Albumin 3.8 (3.2-5.5) g/dL Globulin 2.3 (2.1-4.2) g/dL Albumin/Globulin Ratio 1.7 (1.0-2.2) Lipase 20 (11-82) U/L TSH 3.39 (0.34-5.60) uIU/mL 11/07/22 Range/Units 09:26 WBC (4.8-10.8) x10^3/uL RBC (4.70-6.10) 10^6/uL Hgb (14.0-18.0) g/dL Hct (42.0-52.0) % MCV (80.0-94.0) fL MCH (27.0-31.0) pg MCHC (32.0-36.0) g/dL RDW (12.0-15.0) % Plt Count (130-450) 10^3/uL MPV (7.4-11.4) fL Neut # (Auto) (1.5-6.6) 10^3/uL Lymph # (Auto) (1.5-3.5) 10^3/uL [place] # (Auto) (0.0-1.0) 10^3/uL Eos # (Auto) (0.0-0.7) 10^3/uL Baso # (Auto) (0.0-0.1) 10^3/uL Absolute Nucleated RBC x10^3/uL Nucleated RBC % /100WBC ESR 21 H (0-20) mm/Hr Sodium (135-145) mmol/L Potassium (3.5-4.5) mmol/L Chloride (101-111) mmol/L Carbon Dioxide (21-32) mmol/L Anion Gap (6-13) BUN (6-20) mg/dL Creatinine (0.6-1.3) mg/dL Estimated GFR (MDRD) (>89) Glucose (74-104) mg/dL Calcium (8.5-10.3) mg/dL Magnesium (1.7-2.3) mg/dL Total Bilirubin (0.2-1.0) mg/dL AST (10-42) IU/L ALT (10-60) IU/L Alkaline Phosphatase (42-121) IU/L Total Protein (6.4-8.9) g/dL Albumin (3.2-5.5) g/dL Globulin (2.1-4.2) g/dL Albumin/Globulin Ratio (1.0-2.2) Lipase (11-82) U/L TSH (0.34-5.60) uIU/mL - Diagnostic Imaging Results Diagnostic Imaging Results: positive: Final report reviewed - EKG Results EKG Interpreted Independently: Yes Impression/Plan - Problem List Problem List: #Altered mental status #Confusion * Appears to be back at his mental baseline at this time however patient has some memory recall limitations and its unclear if this is new * Patient is a poor historian but is otherwise well oriented. * He has no focal deficits * Exam is normal with NIH score of 0 * Head CT unremarkable * Suspect this may be related to hypomagnesemia but cannot rule out CVA especially because the patient is unable to accurately describe any possible changes with dysarthria * We will place patient in observation * Stroke work-up including MRI to be obtained * Check echocardiogram * Check UA * Monitor BP * Check A1c and lipid panel in the a.m. * Start ASA * Hold off on Plavix given low probability of CVA/TIA * Start statin * PT/OT evals #Hypomagnesemia * Mg 0.9 * Unknown etiology * Pt states no etoh for a few weeks * Possibly due to "water pill" * Repleted in ED * Check level this afternoon and if low, cont replacement * Repeat lab in am, may need to d/c on PO Mag Ox if still low #Type 2 DM * Check A1C * Diabetic Diet * Insulin sliding scale * Hold metformin and given AREN, and baseline Cr, may consider d/c at discharge #HTN * BP here stable * Cont home meds, amlodipine * Hold losartan given AREN #Lower ext edema * Per pt, has been worked up * In EMR, echo from 2 years ago shows normal EF, no sig valvular disease or #Obesity Core Measures - Anticipated LOS I expect patient to be DC'd or transferred within 96 hours.: Yes - DVT/VTE - Prophylaxis VTE/DVT Device ordered at admit?: Yes - Stroke - Rehab Assessment Rehab services assessment to be ordered?: Yes
--- NOTE | 2022-11-07 12:54 | CT Report ---
PROCEDURE: CT Angio Head/Neck INDICATIONS: trouble speaking this AM TECHNIQUE: Noncontrast head CT images were performed earlier in the day and not repeated. After the administra tion of intravenous contrast, 1 mm thick sections acquired from the aortic arch through the [place]. 3-dimensional ymoclxq-nghgpccpz-dswkduzzbz (MIP) and/or volume rendering reformats were acq uired of the central intracranial vasculature and neck separately. For radiation dose reduction, the following was used: automated exposure control, adjustment of mA and/or kV according to patient siz e. CONTRAST: 80ml Omni 300 COMPARISON: Correlation is made with the accompanying noncontrast head CT. Correlation is also made with prior head and neck CT angiogram studies, 08/28/2015 FINDINGS: Image quality: There is streak artifact seen to the level of the shoulders. BRAIN: CSF spaces: Ventricles are normal in size and shape. Basal cisterns are patent. No extra-axial flu id collections. Brain: No midline shift. No intracranial bleeds or masses. Ibanez-white matter interface appears int act. Skull and face: Calvarium and facial bones appear intact, without suspicious lesions. Orbits appear normal. Sinuses: Sinuses and mastoids are clear. HEAD CT ANGIOGRAPHY: Anterior circulation: Intracranial internal carotid arteries demonstrate generalized calcification a nd irregularity, with 50-60% narrowing seen on each side. Negative diminutive right The flow within t he paired anterior cerebral arteries is otherwise normal and symmetric. The flow within the middle c erebral arteries is normal and symmetric. The anterior communicating artery is seen. No aneurysms a re seen. Posterior circulation: Visualized portions of the vertebral arteries demonstrate normal caliber, and join to form a normal appearing basilar artery. Flow within the posterior cerebral arteries is norm al and symmetric. No aneurysms are seen. NECK CT ANGIOGRAPHY: Carotid system: The great vessels demonstrate a conventional anatomy as they arise from the aortic a rch. Atherosclerotic calcification is seen. The origins of the common carotid arteries appear patent. The common carotid arteries demonstrate normal caliber and courses. The bifurcation regions demonstrate atherosclerotic irregularity and calcification. There is approxim ately 50% narrowing seen involving the left proximal internal carotid artery and approximately 40% na rrowing involving the right proximal internal carotid artery. The more distal extracranial internal c arotid arteries demonstrate normal caliber. There is moderate tortuosity seen on the right side. Posterior circulation: Focal calcification can be seen involving the origin of the right vertebral a rtery, with approximately 50% narrowing. The left vertebral artery origin is widely patent. The more superior extracranial portions of both vertebral arteries also demonstrate normal courses an d calibers. Soft tissues: Visualized neck soft tissues demonstrate no suspicious abnormalities. Incidental note is made of a presumed sebaceous cyst just to the left of the midline within the upper neck, as on se kimberlee 5 image 185, measuring 2 cm. Bones: No suspicious bony lesions. Visualized cervical spine appears normally aligned. Moderate ce rvical spine degenerative change can be seen. IMPRESSION: Focal calcification and irregularity can be seen involving the carotid bifurcations, with approximate ly 50% narrowing on the left and approximately 40% narrowing on the right. Approximately 50% narrowing seen involving the origin of the right vertebral artery. If there is strong clinical concern for a stroke, please consider a dedicated brain MRI for further e valuation (assuming that there is no contraindication to MRI). Additional findings: 2 cm presumed sebaceous cyst involving the left posterior neck Moderate cervical spinal degenerative change The estimate of stenosis included in the report of the imaging study was calculated using the NASCET method Reviewed by: Ming Hernandez MD on 11/07/2022 11:53 AM [place] Approved by: Ming Hernandez MD on 11/07/2022 11:53 AM [place] Station ID: [id number]
[2022-11-07 13:14] LABS: BILIRUBIN,URINE NEGATIVE (NEGATIVE); GLUCOSE, URINE (UA) NEGATIVE (NEGATIVE); KETONES,URINE (UA) NEGATIVE (NEGATIVE); LEUKOCYTE ESTERASE, URINE NEGATIVE (NEGATIVE); NITRITE,URINE NEGATIVE (NEGATIVE); OCCULT BLOOD,URINE NEGATIVE (NEGATIVE); PH,URINE 7.5 PH (5.0-7.5); PROTEIN,URINE NEGATIVE (NEGATIVE); UROBILINOGEN,URINE 1 (NORMAL) E.U./dL (NORMAL)
[2022-11-07 13:18] LABS: CLARITY,URINE CLEAR (CLEAR)
--- NOTE | 2022-11-07 14:13 | PHARMACY PROGRESS NOTE ---
- Best Possible Medication History Admit Date and Time: 11/07/22 1210 Processed by: Pharmacy Medication History completed: Yes Patient Interview: Completed Secondary Source(s): Pharmacy records, Insurance records As the person ultimately responsible for medication therapy, providers are able to order a medication from an existing home medication list in [facility] via the "Reconcile Routine" prior to Confirmation of that medication by product support manager. Such practice is discouraged except when the physician, in their clinical judgment, deems that a medical need exists for a medication without regard to previous use.
[2022-11-07] MEDS: ASPIRIN EC 81 MG TABLET PO SCH (14:21)
[2022-11-07] MEDS ORDERED: ALBUTEROL NEB 2.5 MG/3 ML INH PRN (14:36)
--- NOTE | 2022-11-07 16:18 | MRI Report ---
PROCEDURE: BRAIN WO INDICATIONS: Acute confusion, r/o CVA TECHNIQUE: Noncontrast axial T1 spin echo, axial T2 fast spin echo, sagittal and axial FLAIR, coronal T2 fast sp in echo, axial gradient echo, axial diffusion and ADC through the brain. COMPARISON: CT head 11/07/2022, CTA head and neck 08/28/2015 FINDINGS: Image quality: Excellent. The ventricular system and cortical sulci demonstrate atrophy, consistent for patient's stated age. There are areas of hyperintense T2/FLAIR signal in the periventricular and subcortical white matter. There is no acute intra or extra-axial fluid collection. No acute hemorrhage, mass lesion or midlin e shift. Brainstem is unremarkable. There are no areas of restricted diffusion. Globes are symmetr ical. Sinuses are aerated. Osseous structures are intact. IMPRESSION: 1. No acute intracranial process. 2. Moderate atrophy and chronic microvascular ischemic changes. Reviewed by: Rona Cortés MD on 11/07/2022 4:16 PM PDT Approved by: Rona Cortés MD on 11/07/2022 4:16 PM PDT Station ID: [id number]
[2022-11-07] MEDS: INSULIN LISPRO 300 UNIT/3 ML PEN SUBQ SCH ×2 (16:44→20:57)
[2022-11-07] MEDS: SODIUM CHLORIDE FLUSH 0.9% 10 ML SYRINGE IVP SCH ×2 (16:49→23:55)
[2022-11-07] MEDS: MAGNESIUM OXIDE 400 MG TABLET PO SCH (18:01)
[2022-11-07] MEDS: ATORVASTATIN 40 MG TABLET PO SCH (20:57)
[2022-11-08 05:06] LABS: HCT - HEMATOCRIT 34.8 % (42.0-52.0); HGB - HEMOGLOBIN 12.3 g/dL (14.0-18.0); MEAN CORPUSCULAR HEMOGLOBIN 32.6 pg (27.0-31.0); MEAN CORPUSCULAR HGB CONC 35.3 g/dL (32.0-36.0); MEAN CORPUSCULAR VOLUME 92.3 fL (80.0-94.0); MEAN PLATELET VOLUME 11.6 fL (7.4-11.4); RED BLOOD COUNT 3.77 10^6/uL (4.70-6.10); RED CELL DISTRIBUTION WIDTH 11.8 % (12.0-15.0); WHITE BLOOD COUNT 5.8 x10^3/uL (4.8-10.8)
[2022-11-08 05:22] LABS: CALCIUM 8.8 mg/dL (8.5-10.3); CREATININE 1.4 mg/dL (0.6-1.3); MAGNESIUM 1.3 mg/dL (1.7-2.3); POTASSIUM 3.3 mmol/L (3.5-4.5)
[2022-11-08 05:46] LABS: CHOL/HDL RATIO 4.6 (<5.0); CHOLESTEROL 123 mg/dL; HDL CHOLESTEROL 27 mg/dL; LDL CHOLESTEROL,CALCULATED 57 mg/dL; LDL/HDL RATIO 2.1 (<3.6); TRIGLYCERIDES 195 mg/dL (48-352); VLDL CHOLESTEROL 39 mg/dL
[2022-11-08] MEDS ORDERED: POTASSIUM CHLORIDE 20 MEQ TABLET PO ONE (07:23)
[2022-11-08] MEDS ORDERED: MAGNESIUM SULFATE 2 GRAM 2 GM/50 ML BAG IV ONE (07:23)
[2022-11-08] MEDS: MAGNESIUM OXIDE 400 MG TABLET PO SCH (07:51)
[2022-11-08] MEDS: ASPIRIN EC 81 MG TABLET PO SCH (07:51)
[2022-11-08] MEDS: INSULIN LISPRO 300 UNIT/3 ML PEN SUBQ SCH ×4 (07:52→21:54)
[2022-11-08] MEDS: SODIUM CHLORIDE FLUSH 0.9% 10 ML SYRINGE IVP SCH ×2 (08:02→17:23)
[2022-11-08] MEDS: amLODIPine 5 MG TABLET PO SCH (08:03)
[2022-11-08 10:12] LABS: ESTIMATED AVERAGE GLUCOSE 177 mg/dL (70-100); HEMOGLOBIN A1c% 7.8 % (4.27-6.07)
--- NOTE | 2022-11-08 16:26 | PROVIDER PROGRESS NOTE ---
Assessment/Plan - Problem List (1) Expressive aphasia Assessment/Plan: Patient appears to be back to his baseline. Patient is generally a poor historian but is otherwise well oriented. He has no focal deficits. CT of head without contrast revealed no acute findings. CTA of head and neck revealed focal calcification irregularity can be seen involving the carotid bifurcations with approximately 50% narrowing on the left and approximately 40% narrowing on the right. Approximately 50% narrowing seen involving the origin of the right vertebral artery.Patient was initiated on ASA. Also statin was initiated. OT PT consults obtained. Echocardiogram is pending. (2) Hypomagnesemia Assessment/Plan: Monitor and replete as necessary. Patient notes he has been off of his magnesium supplements for at least a week. (3) T2DM (type 2 diabetes mellitus) Assessment/Plan: Awaiting hemoglobin A1c. Patient is on insulin sliding scale and diabetic diet. Metformin is held. (4) HTN (hypertension) Assessment/Plan: Continue with amlodipine and losartan was held given given GFR <50 - Current Meds Current Meds: Current Medications Generic Name Dose Route Start Last Admin Trade Name Marialuisa PRN Reason Stop Dose Admin Amlodipine Besylate 5 mg 11/08/22 09:00 11/08/22 08:03 Amlodipine 5 Mg Tablet PO 5 mg DAILY PATRICK Administration Aspirin 81 mg 11/07/22 13:00 11/08/22 07:51 Aspirin Ec 81 Mg Tablet PO 81 mg DAILY PATRICK Administration Atorvastatin Calcium 40 mg 11/07/22 21:00 11/07/22 20:57 Atorvastatin 40 Mg Tablet PO 40 mg QPM PATRICK Administration Insulin Human Lispro 1 - 5 unit 11/07/22 17:00 11/08/22 11:45 Insulin Lispro 300 Unit/3 Ml Pen SUBQ 1 unit 0800,1200,1700,2100 PATRICK Administration Protocol Magnesium Oxide 400 mg 11/07/22 18:00 11/08/22 07:51 Magnesium Oxide 400 Mg Tablet PO 400 mg DAILYWM PATRICK Administration Sodium Chloride 10 ml 11/07/22 17:00 11/08/22 08:02 Sodium Chloride Flush 0.9% 10 Ml Syringe IVP 10 ml 0100,0900,1700 PATRICK Administration - Lab Result Fish Bone Diagrams: 11/08/22 04:50 11/08/22 04:50 Subjective - Subjective Patient Reports: Feeling Better, Resting Comfortably Objective Vital Signs: Vital Signs - 24 hr 11/08/22 11/08/22 11/08/22 00:16 05:44 08:45 Temperature 36.5 C 36.4 C L 36.4 C L Heart Rate [ 81 Brachial] Heart Rate [ 87 85 Monitoring electrodes] Respiratory 16 16 18 Rate Blood Pressure 123/55 L 126/68 134/63 H [Right Brachial artery] O2 Saturation 95 94 94 11/08/22 12:09 Temperature 36.7 C Heart Rate [ 79 Brachial] Heart Rate [ Monitoring electrodes] Respiratory 17 Rate Blood Pressure 139/65 H [Right Brachial artery] O2 Saturation 96 Oxygen O2 Source Room air I&O (Last 24 Hrs): Intake and Output Totals x24h 11/06/22 11/07/22 11/08/22 23:59 23:59 23:59 Intake Total 1460 630 Balance 1460 630 General: Alert, Oriented x3 HEENT: Atraumatic Cardiovascular: Regular rate Respiratory: Chest non-tender Abdomen: Normal bowel sounds, Soft Extremities: Other (Trace bilateral pedal edema) - Results Results: Laboratory Results WBC 5.8 x10^3/uL (4.8-10.8) 11/08/22 04:50 RBC 3.77 10^6/uL (4.70-6.10) L 11/08/22 04:50 Hgb 12.3 g/dL (14.0-18.0) L 11/08/22 04:50 Hct 34.8 % (42.0-52.0) L 11/08/22 04:50 MCV 92.3 fL (80.0-94.0) 11/08/22 04:50 MCH 32.6 pg (27.0-31.0) H 11/08/22 04:50 MCHC 35.3 g/dL (32.0-36.0) 11/08/22 04:50 RDW 11.8 % (12.0-15.0) L 11/08/22 04:50 Plt Count 173 10^3/uL (130-450) 11/08/22 04:50 MPV 11.6 fL (7.4-11.4) H 11/08/22 04:50 Neut # (Auto) 2.9 10^3/uL (1.5-6.6) 11/07/22 09:26 Lymph # (Auto) 2.6 10^3/uL (1.5-3.5) 11/07/22 09:26 [place] # (Auto) 1.1 10^3/uL (0.0-1.0) H 11/07/22 09:26 Eos # (Auto) 0.2 10^3/uL (0.0-0.7) 11/07/22 09:26 Baso # (Auto) 0.1 10^3/uL (0.0-0.1) 11/07/22 09:26 Absolute Nucleated RBC 0.00 x10^3/uL 11/07/22 09:26 Nucleated RBC % 0.0 /100WBC 11/07/22 09:26 ESR 21 mm/Hr (0-20) H 11/07/22 09:26 Sodium 137 mmol/L (135-145) 11/08/22 04:50 Potassium 3.3 mmol/L (3.5-4.5) L 11/08/22 04:50 Chloride 99 mmol/L (101-111) L 11/08/22 04:50 Carbon Dioxide 31 mmol/L (21-32) 11/08/22 04:50 Anion Gap 7.0 (6-13) 11/08/22 04:50 BUN 15 mg/dL (6-20) 11/08/22 04:50 Creatinine 1.4 mg/dL (0.6-1.3) H 11/08/22 04:50 Estimated GFR (MDRD) 48 (>89) L 11/08/22 04:50 Glucose 158 mg/dL (74-104) H 11/08/22 04:50 POC Whole Bld Glucose 179 mg/dL (70 - 100) H 11/08/22 11:03 Estimat Average Glucose 177 mg/dL (70-100) H 11/08/22 04:50 Hemoglobin A1c % 7.8 % (4.27-6.07) H 11/08/22 04:50 Calcium 8.8 mg/dL (8.5-10.3) 11/08/22 04:50 Magnesium 1.3 mg/dL (1.7-2.3) L 11/08/22 04:50 Total Bilirubin 1.0 mg/dL (0.2-1.0) 11/07/22 09:26 AST 25 IU/L (10-42) 11/07/22 09:26 ALT 21 IU/L (10-60) 11/07/22 09:26 Alkaline Phosphatase 61 IU/L (42-121) 11/07/22 09:26 Total Protein 6.1 g/dL (6.4-8.9) L 11/07/22 09:26 Albumin 3.8 g/dL (3.2-5.5) 11/07/22 09:26 Globulin 2.3 g/dL (2.1-4.2) 11/07/22 09:26 Albumin/Globulin Ratio 1.7 (1.0-2.2) 11/07/22 09:26 Triglycerides 195 mg/dL (48-352) 11/08/22 04:50 Cholesterol 123 mg/dL (-200) 11/08/22 04:50 LDL Cholesterol, Calc 57 mg/dL (-129) 11/08/22 04:50 VLDL Cholesterol 39 mg/dL 11/08/22 04:50 HDL Cholesterol 27 mg/dL (60-) L 11/08/22 04:50 LDL/HDL Ratio 2.1 (<3.6) 11/08/22 04:50 Cholesterol/HDL Ratio 4.6 (<5.0) 11/08/22 04:50 Lipase 20 U/L (11-82) 11/07/22 09:26 Vitamin B12 635 pg/mL (180-914) 11/08/22 04:50 TSH 3.39 uIU/mL (0.34-5.60) 11/07/22 09:26 Urine Color YELLOW 11/07/22 12:39 Urine Clarity CLEAR (CLEAR) 11/07/22 12:39 Urine pH 7.5 PH (5.0-7.5) 11/07/22 12:39 Ur Specific [place] 1.010 (1.002-1.030) 11/07/22 12:39 Urine Protein NEGATIVE mg/dL (NEGATIVE) 11/07/22 12:39 Urine Glucose (UA) NEGATIVE mg/dL (NEGATIVE) 11/07/22 12:39 Urine Ketones NEGATIVE mg/dL (NEGATIVE) 11/07/22 12:39 Urine Occult Blood NEGATIVE (NEGATIVE) 11/07/22 12:39 Urine Nitrite NEGATIVE (NEGATIVE) 11/07/22 12:39 Urine Bilirubin NEGATIVE (NEGATIVE) 11/07/22 12:39 Urine Urobilinogen 1 (NORMAL) E.U./dL (NORMAL) 11/07/22 12:39 Ur Leukocyte Esterase NEGATIVE (NEGATIVE) 11/07/22 12:39 Ur Microscopic Review NOT INDICATED 11/07/22 12:39 Urine Culture Comments NOT INDICATED 11/07/22 12:39 ABX Reporting Has patient been on IV antibiotics over the past 48 hours?: No
[2022-11-08] MEDS: ATORVASTATIN 40 MG TABLET PO SCH (21:53)
[2022-11-09] MEDS: SODIUM CHLORIDE FLUSH 0.9% 10 ML SYRINGE IVP SCH ×2 (05:01→08:08)
[2022-11-09 05:42] LABS: HCT - HEMATOCRIT 36.3 % (42.0-52.0); HGB - HEMOGLOBIN 12.7 g/dL (14.0-18.0); MEAN CORPUSCULAR HEMOGLOBIN 32.4 pg (27.0-31.0); MEAN CORPUSCULAR VOLUME 92.6 fL (80.0-94.0); MEAN PLATELET VOLUME 11.5 fL (7.4-11.4); RED BLOOD COUNT 3.92 10^6/uL (4.70-6.10); RED CELL DISTRIBUTION WIDTH 11.8 % (12.0-15.0); WHITE BLOOD COUNT 6.5 x10^3/uL (4.8-10.8)
[2022-11-09 06:01] LABS: CREATININE 1.3 mg/dL (0.6-1.3); POTASSIUM 3.4 mmol/L (3.5-4.5)
--- NOTE | 2022-11-09 07:57 | Discharge Plan ---
Discharge Plan Problem Reviewed?: Yes Disposition: Home, Self Care Condition: Stable Prescriptions: Aspirin EC [Ecotrin] 81 mg PO DAILY #30 tab Potassium Chloride [K-Dur] 20 meq PO DAILYWM #30 tab Atorvastatin [Lipitor] 40 mg PO QPM #30 tab Magnesium Oxide [Mag Ox] 400 mg PO DAILYWM #30 tab Diet: Cardiac Activity Restrictions: Activity as Tolerated Weight Bearing: Full Weight Assessment: This is a 81-year-old male whose past medical history significant for type 2 diabetes, hypertension, obesity who presented to the emergency room on November 07 with and he released confusion and difficulty speaking. This has resolved and he is at his baseline he was also found to be significantly hypokalemic and hypomagnesemic and this was thought to be a contributing factor his information was reviewed with telemetry neuro when he presented and they thought it was secondary to his electrolyte deficiencies no significant findings on neurological imaging was found. Echocardiogram has not been read by director of district office as of yet and patient is very anxious to go home hence he is to follow-up with his primary care provider regarding his final reading however preliminary review of echo does not show any significantly concerning findings. No Smoking: If you smoke, Please STOP! Call for help. Follow-up with: Mirian Juan MD [Provider Admit Priv/Credential] -
[2022-11-09] MEDS ORDERED: POTASSIUM CHLORIDE 20 MEQ TABLET PO SCH (08:00)
[2022-11-09] MEDS: INSULIN LISPRO 300 UNIT/3 ML PEN SUBQ SCH (08:04)
[2022-11-09] MEDS: MAGNESIUM OXIDE 400 MG TABLET PO SCH (08:05)
[2022-11-09] MEDS: amLODIPine 5 MG TABLET PO SCH (08:05)
[2022-11-09] MEDS: ASPIRIN EC 81 MG TABLET PO SCH (08:06)
--- NOTE | 2022-11-09 08:10 | DISCHARGE SUMMARY ---
"Discharge Summary Admit Date: 11/07/22 Discharge Date: 11/09/22 Discharging Provider: Angela Elizabeth MD Primary Care Provider: Mirian Juan MD Code Status: Attempt Resuscitation Condition at Discharge: Stable Discharge Disposition: 01 Home, Self Care - DIAGNOSES Admission Diagnoses: Expressive Aphasia Hypomagnesemia Hypokalemia T2DM HTN Obesity Discharge Diagnoses with Status of Each Condition: Expressive aphasia-resolved. No evidence on imaging studies of CVA. Echocardiogram preliminary report reveals no clinically concerning findings. Patient was initiated on ASA 81 mg p.o. daily. Patient's statin therapy was also increased to atorvastatin 40 mg daily. Hypomagnesemia, acute, present on admission-patient notes he has been off of his magnesium and potassium supplements at least for the past week. Encouraged to continue taking them as prescribed daily Type 2 diabetes, present on admission-patient's hemoglobin A1c returns at 9.2. Continue home medications and recommend follow-up with his primary care provid er. Hypertension, chronic, present on admission-continue with amlodipine losartan was held due to concern regarding GFR less than 50 but defer to primary care provider to reinitiate if needed - HPI History of Present Illness: Patient is an 81-year-old man with PMH of type 2 diabetes, hypertension, obesity, who presented to the ED today after he noticed confusion and difficulty speaking since this morning. Patient states he was in his usual state of health up until when he woke up this morning. He woke up and went down to his computer to check his emails and do some other work, when he noticed he started to feel confused and had a difficult time managing his computer. This was then noticed by his . He is on went to have a coffee with some friends who noticed he does not seem right so they advised to go to the emergency room for further maksim luation. The patient and his are both quite poor historians and unable to provide much detail, but it does not appear that he has had any motor symptoms, headache, blurry vision, numbness, asymmetric smile, facial asymmetry or other focal neurological deficits. In an attempt to specify whether the patient had any dysarthria, I am unable to get a certain answer from either the patient or his . With respect to blurry vision, he reports his vision seems to be worse over the last few weeks, but nothing acutely that developed since this morning. Patient states he went to a walk-in clinic earlier this week, and had some blood work done. He was told that his magnesium level was low. He initially did not recall why he was going to the walk-in clinic in the first place, but eventually remembered and says it is because he had not been feeling well. When asked about specific symptoms, it is very difficult to extract any meaningful history from either the patient or his as they do not seem to have much recall and/or comprehension. In the ED, the patient was worked up as a code neuro for the possibility of CVA. His work-up was largely reassuring with normal vital signs, and low magnesium at 0.9 but otherwise fairly unremarkable labs with the exception of a creatinine of 1.9 which appears somewhat higher than his baseline. He had an unremarkable head CT and, per ED physician, unremarkable head CT angiogram of the head and the neck (report not available at the time of admission). Neurology telemedicine consultation was obtained and it was not felt that this was likely to be a CVA and may be a result of low magnesium levels as his magnesium was 0.9 in the ED. However, observation admission was suggested. Magnesium replacement was initiated in the ED. - CONSULTS | PROCEDURES Consultations: teleneuro - HOSPITAL COURSE Hospital Course: Patient's presenting symptoms of expressive aphasia and confusion had resolved. Imaging studies did not reveal any critical findings. Patient also had no focal deficits upon presentation. CT of head without contrast revealed no acute findings. CTA of head and neck revealed focal calcification and irregularity seen involving the carotid bifurcations with approximately 50% narrowing on the left and approximately 40% narrowing on the right. Approximately 50% narrowing seen involving the origin of the right vertebral artery. Patient was initiated on ASA and patient's statin therapy was increased. OT PT consult had been obtained. Echocardiogram preliminary report reveals underlying rhythm is sinus with frequent premature ventricular contractions.Left ventricular size is normal. Left ventricular wall thickness is normal. Overall left ventricular systolic function is normal with an ejection fraction of 55 to 60%. Normal diastology for age. Mild right ventricular enlargement. The right ventricle systolic function is normal. Left atrium mild increase in the left atrial volume index. Left atrium volume index is 38 mils per meter squared. Mild right atrial enlargement. The aortic valve is trileaflet. There is moderate a ortic valve sclerosis but there is no evidence of aortic stenosis. No evidence of aortic regurgitation.There is thickening of the mitral valve leaflets. No mitral stenosis noted. Mitral annular calcification mild mitral regurgitation is present but unable to quantify due to suboptimal acoustic windows. No significant mitral regurgitation. Tricuspid valve appears structurally normal. Trace to mild tricuspid regurgitation present. Insufficient TR jet would not allow accurate assessment of RVSP. Pulmonic valve is normal. Trace pulmonic regurgitation. There is no pericardial effusion noted. Atrium septum was not well visualized aortic root measures 3.7 cm ascending aorta measures 3.6 cm no mass or thrombus identified. There is no pleural effusion noted. - ALLERGIES Allergies/Adverse Reactions: Allergies Allergy/AdvReac Type Severity Reaction Status Date / Time pork derived (porcine) Allergy Unknown Verified 11/07/22 16:21 shellfish derived Allergy Unknown Verified 11/07/22 16:20 - MEDICATIONS Home Medications: Ambulatory Orders Medication Instructions Recorded Confirmed Cholecalciferol [Vitamin D3] 25 mcg PO DAILY 11/07/22 11/07/22 Furosemide [Lasix] 20 mg PO DAILY 11/07/22 11/07/22 Magnesium Oxide [Magnesium] 400 mg PO DAILY 11/07/22 11/07/22 Montelukast [Singulair] 10 mg PO QPM 11/07/22 11/07/22 Multivitamin [Theragran] 1 tab PO DAILY 11/07/22 11/07/22 Tamsulosin [Flomax] 0.4 mg PO QPM 11/07/22 11/07/22 Tiotropium [place] [Spiriva 1 puffs INH DAILY PRN 11/07/22 11/07/22 Respimat] amLODIPine [Norvasc] 5 mg PO DAILY 11/07/22 11/07/22 metFORMIN [Glucophage] 850 mg PO BID 11/07/22 11/07/22 oxyBUTYnin chloride [Oxybutynin 5 mg PO BID 11/07/22 11/07/22 Chloride] Aspirin EC [Ecotrin] 81 mg PO DAILY #30 tab 11/09/22 Atorvastatin [Lipitor] 40 mg PO QPM #30 tab 11/09/22 Magnesium Oxide [Mag Ox] 400 mg PO DAILYWM #30 tab 11/09/22 Potassium Chloride [K-Dur] 20 meq PO DAILYWM #30 tab 11/09/22 amLODIPine [Norvasc] 5 mg PO DAILY tab 11/09/22 - PHYSICAL EXAM AT DISCHARGE General Appearance: positive: No acute distress, Alert Eyes Bilateral: positive: Normal inspection, PERRL Neck: positive: Nml inspection Respiratory: positive: No respiratory distress, Breath sounds nml Cardiovascular: positive: Regular rate & rhythm, No murmur Abdomen: positive: Non-tender, No distention Back: positive: Nml inspection Skin: positive: No rash Extremities: positive: Other (Patient with trace to 1+ bilateral lower extremity edema) Neurologic/Psychiatric: positive: Oriented x3, Motor nml, Sensation nml, Mood/affect nml - LABS Result Diagrams: 11/09/22 05:19 11/09/22 05:19 - QUALITY (Female Hip Fx Only) Was patient sent home on osteoporosis medication?: No - FOLLOW UP Follow Up: Patient is to follow-up with his primary care provider in 3 to 4 days sooner if problems. - TIME SPENT Time Spent in Discharge (Minutes): 29"
[2022-11-09 08:50] VITALS: BP 141/66
--- NOTE | 2022-11-09 09:12 | Discharge Plan ---
Discharge Plan Problem Reviewed?: Yes Disposition: Home, Self Care Condition: Stable Prescriptions: Aspirin EC [Ecotrin] 81 mg PO DAILY #30 tab Potassium Chloride [K-Dur] 20 meq PO DAILYWM #30 tab Atorvastatin [Lipitor] 40 mg PO QPM #30 tab Magnesium Oxide [Mag Ox] 400 mg PO DAILYWM #30 tab Activity Restrictions: Activity as Tolerated Weight Bearing: Full Weight Assessment: This is a 81-year-old male whose past medical history significant for type 2 diabetes, hypertension, obesity who presented to the emergency room on November 07 with and he released confusion and difficulty speaking. This has resolved and he is at his baseline he was also found to be significantly hypokalemic and hypomagnesemic and this was thought to be a contributing factor his information was reviewed with telemetry neuro when he presented and they thought it was secondary to his electrolyte deficiencies no significant findings on neurological imaging was found. Echocardiogram has not been read by cardiologi st as of yet and patient is very anxious to go home hence he is to follow-up with his primary care provider regarding his final reading however preliminary review of echo does not show any significantly concerning findings. No Smoking: If you smoke, Please STOP! Call for help. Follow-up with: Mirian Juan MD [Provider Admit Priv/Credential] -
== END 2022-11-09 09:30 | disposition home or self-care (01) ==
LOC: ED 08:59 → MS2 12:10
PROVIDERS: ADMIT Family Medicine Sports Medicine; ATTEND Specialist
DX: R47.01 Aphasia (principal); E83.42 Hypomagnesemia; I65.23 Occlusion and stenosis of bilateral carotid arteries; E87.6 Hypokalemia; E11.9 Type 2 diabetes mellitus without complications; I10 Essential (primary) hypertension; E66.9 Obesity, unspecified; I65.01 Occlusion and stenosis of right vertebral artery; R60.0 Localized edema; Z68.36 Body mass index [BMI] 36.0-36.9, adult; Z79.84 Long term (current) use of oral hypoglycemic drugs; Z79.899 Other long term (current) drug therapy; Z87.891 Personal history of nicotine dependence
CPT/HCPCS: 36415; 70450; 70496; 70498; 70551; 80048; 80053; 80061; 81003; 82607; 83036; 83690; 83735; 84443; 85025; 85027; 85651; 93005; 93306; 96365; 96366; 96376; 97161; 97165; 99285; A9270; G0378; J7120; Q9967; 81001; 83721; 87086

== ENCOUNTER 2022-11-15 15:22 | Outpatient (CLI) | payer MEDICARE, OTHER ==
--- NOTE | 2022-11-15 21:56 | XRAY Report ---
PROCEDURE: Abdomen 2 View X-Ray INDICATIONS: EARLY SATIETY,CONSTIPATION,UNINTENT WEIGHT LOSS TECHNIQUE: 2 views of the abdomen were acquired. COMPARISON: None. FINDINGS: Surgical changes and devices: None. Bowel: No pneumoperitoneum. The bowel gas pattern is normal. Stool load within normal limits. Soft tissues: No masses; visualized solid organ contours appear normal in size. No suspicious abdom inal calcifications. Bones: No suspicious bony abnormalities. Chronic appearing moderately severe bilateral femoral aceta bular joint degeneration. Prominent degenerative disc and endplate degeneration in the lower lumbar s pine. IMPRESSION: No acute abdominal pathology. Reviewed by: Joanne Fields MD on 11/15/2022 9:55 PM PDT Approved by: Joanne Fields MD on 11/15/2022 9:55 PM PDT Station ID: [id number]
== END 2022-11-15 15:23 | disposition home or self-care (01) ==
LOC: DI.S 15:22
PROVIDERS: ATTEND Registered Nurse
DX: R68.81 Early satiety (principal); K59.00 Constipation, unspecified; R63.4 Abnormal weight loss

== ENCOUNTER 2023-01-29 07:18 | Outpatient (CLI) | payer MEDICARE, OTHER ==
[2023-01-29 15:52] LABS: CALCIUM 9.6 mg/dL (8.5-10.3); CREATININE 1.2 mg/dL (0.6-1.3); MAGNESIUM 1.2 mg/dL (1.7-2.3); POTASSIUM 4.5 mmol/L (3.5-4.5)
[2023-01-29 21:06] LABS: ESTIMATED AVERAGE GLUCOSE 143 mg/dL (70-100); HEMOGLOBIN A1c% 6.6 % (4.27-6.07)
== END 2023-01-29 07:19 | disposition home or self-care (01) ==
LOC: LAB.S 07:18
PROVIDERS: ATTEND Registered Nurse
DX: E11.9 Type 2 diabetes mellitus without complications (principal); E83.42 Hypomagnesemia; R63.0 Anorexia; R68.81 Early satiety; K59.00 Constipation, unspecified
CPT/HCPCS: 36415; 80048; 83036; 83735